=== PATIENT | male | born 1995 | race Caucasian/White ===

== ENCOUNTER 2019-05-10 01:14 | Emergency (ER) | payer MEDICAID ==
[~2019-05-10] VITALS: Ht 185.4 cm; Wt 63.5 kg
[2019-05-10 01:43] LABS: Basophils # (auto) 0 uL; Basophils % (auto) 0.5 % (0.0-2.0); Eosinophils # (auto) 0 uL; Eosinophils % (auto) 0.6 % (0.0-7.0); Hematocrit 41.8 % (41.0-53.0); Hemoglobin 14.1 g/dL (13.5-17.5); Lymphocytes # (auto) 1.2 uL; Mean Corpuscular Hemoglobin 30.6 pg (28.0-32.0); Mean Corpuscular Hgb Conc. 33.7 g/dL (32.0-36.0); Mean Corpuscular Volume 90.9 fL (80.0-100.0); Monocytes # (auto) 0.6 uL; Monocytes % (auto) 10.2 % (0.0-12.0); Neutrophils # (auto) 4.3 uL; Neutrophils % (auto) 69.7 % (37.0-80.0); Nucleated Red Blood Cells % 0.1 %; Platelet Count (auto) 316 10^3/uL (140-450); White Blood Cell 6.2 10^3/uL (4.4-10.8)
[2019-05-10 02:01] LABS: Albumin 4.3 g/dL (3.4-5.0); Anion Gap 12 (5-15); Blood Alcohol < 3.0 mg/dL (0-5); Blood Urea Nitrogen 11 mg/dL (7-18); Carbon Dioxide 23 mmol/L (21-32); Chloride 106 mmol/L (98-107); Glucose 88 mg/dL (74-106); Potassium 3.4 mmol/L (3.5-5.1); Sodium 141 mmol/L (136-145)
[2019-05-10 02:03] LABS: Alanine Aminotransferase 67 U/L (16-61); Aspartate Aminotransferase 53 U/L (15-37); BUN/Creatinine Ratio 11.6; GFR African American 126 mL/min; GFR Non-African American 104 mL/min
[2019-05-10 02:05] LABS: Alkaline Phosphatase 61 U/L (45-117); Bilirubin, Total 0.7 mg/dL (0.2-1.0); Total Protein 7.3 g/dL (6.4-8.2)
[2019-05-10 02:21] LABS: Urine WBC None Seen /hpf (0 - 3)
[2019-05-10 02:36] LABS: Urine Bacteria NONE SEEN /hpf (None Seen); Urine Blood Negative /uL (Negative); Urine Mucus FEW (None Seen); Urine Specific Gravity 1.036 (1.001-1.035)
[2019-05-10 02:48] LABS: Alcohol, Urine < 3.0 mg/dL (0-5); Amphetamine Screen, Urine POSITIVE (NEGATIVE); Barbiturate Scree,Urine NEGATIVE (NEGATIVE); Benzodiazephine Screen, Urine NEGATIVE (NEGATIVE); Cannabinoid Screen, Urine NEGATIVE (NEGATIVE); Cocaine Screen, Urine NEGATIVE (NEGATIVE); Opiate Scree,Urine NEGATIVE (NEGATIVE); Phencyclidine Screen, Urine NEGATIVE (NEGATIVE)
[2019-05-10] MEDS ORDERED: SODIUM CHLORIDE 0.9% 1,000 ML IVB ONE (07:10)
[2019-05-10] MEDS ORDERED: POTASSIUM EFFERVESENT TAB 25 MEQ PO ONE (07:15)
[2019-05-10] MEDS ORDERED: hydrOXYzine 25 MG TAB or CAP PO ONE (18:00)
[2019-05-10 19:37] VITALS: BP 130/91
[2019-05-11] MEDS ORDERED: OLANZapine 5 MG TAB PO ONE (10:00)
== END 2019-05-10 19:52 | disposition short-term general hospital (02) ==
LOC: ER 01:17
DX: T14.91XA Suicide attempt, initial encounter (principal); F32.9 Major depressive disorder, single episode, unspecified; F15.10 Other stimulant abuse, uncomplicated; E87.6 Hypokalemia; R63.0 Anorexia; F17.210 Nicotine dependence, cigarettes, uncomplicated; Z91.5 Personal history of self-harm; X78.8XXA Intentional self-harm by other sharp object, initial encounter; Y93.89 Activity, other specified; Y92.89 Other specified places as the place of occurrence of the external cause; Y99.8 Other external cause status
CPT/HCPCS: 36415; 71046; 80053; 80307; 80320; 81001; 83690; 83735; 85025; 93005; 99285; J7030